=== PATIENT | female | born 1985 ===

== ENCOUNTER 2019-09-16 01:27 | Inpatient (IN) | payer OTHER ==
[~2019-09-16] VITALS: Ht 160 cm; Wt 68.0 kg
[2019-09-16] MEDS ORDERED: ONDANSETRON HCL 4 MG/2 ML VIAL IVP ONE (01:45)
[2019-09-16] MEDS ORDERED: SODIUM CHLORIDE 0.9% 1,000 ML IV ONE (01:45)
[2019-09-16] MEDS ORDERED: QUET200T PO (01:47)
[2019-09-16] MEDS ORDERED: BUPR1FIL3 SL (01:47)
[2019-09-16 02:20] LABS: BASOPHILS % (AUTO) 0.8 % (0.0-2.0); HEMOGLOBIN 13.9 g/dL (12.0-16.0); LYMPHOCYTES # (AUTO) 2.2 K/uL (1.0-4.8); LYMPHOCYTES % (AUTO) 35.6 % (22.0-44.0); MEAN CORPUSCULAR HEMOGLOBIN 28.2 pg (26.0-34.0); MEAN CORPUSCULAR HGB CONC 33.1 G/dL (31.0-37.0); MEAN CORPUSCULAR VOLUME 85 fL (80-100); MONOCYTES # (AUTO) 0.5 K/uL (0.1-1.0); MONOCYTES % (AUTO) 8.3 % (2.0-9.0); NEUTROPHILS # (AUTO) 3.2 K/uL (1.8-7.7); NEUTROPHILS % (AUTO) 52.3 % (40.0-70.0); PLATELET COUNT (AUTO) 232 K/uL (150-450); RED BLOOD CELL COUNT(AUTO) 4.94 MIL/uL (4.00-5.20); RED CELL DISTRIBUTION WIDTH 13.5 % (11.5-14.5)
[2019-09-16 02:28] LABS: ANION GAP 7 mmol/L (8-16); CALCIUM, TOTAL 8.6 mg/dL (8.8-10.5); CARBON DIOXIDE 28 mmol/L (22-29); CHLORIDE 103 mmol/L (98-107); CREATININE 0.72 mg/dL (0.60-1.30); GLOMERULAR FILTR. RATE CALC > 60 mL/min (>60); GLUCOSE,RANDOM 96 mg/dL (70-110); POTASSIUM 4.3 mmol/L (3.5-5.1); SODIUM SERUM 138 mmol/L (136-145); UREA NITROGEN, BLOOD 13 mg/dL (7-18)
[2019-09-16 02:39] LABS: ALANINE AMINOTRANSFERASE 18 U/L (12-78); ALBUMIN 3.4 g/dL (3.4-5.0); ALKALINE PHOSPHATASE 77 U/L (46-116); ASPARTATE AMINOTRANSFERASE 10 U/L (15-37); BILIRUBIN,TOTAL 0.3 mg/dL (0.1-1.0); HCG,QUANTITATIVE < 1 mIU/mL (0-6)
[2019-09-16] MEDS ORDERED: IBUPROFEN 600 MG TABLET PO PRN (03:15)
[2019-09-16] MEDS ORDERED: HydrOXYzine PAMOATE 50 MG CAPSULE PO PRN (03:15)
[2019-09-16] MEDS ORDERED: ONDANSETRON HCL 4 MG/2 ML VIAL IVP PRN (03:15)
[2019-09-16] MEDS ORDERED: CloNIDine HCL 0.1 MG TABLET PO PRN (03:15)
[2019-09-16] MEDS ORDERED: MAG HYDROX/AL HYDROX/SIMETH ES 30 ML SUSPENSION UDCUP PO PRN (03:15)
[2019-09-16] MEDS ORDERED: 0.9% SODIUM CHLORIDE 10 ML SYRINGE IVP PRN (03:15)
[2019-09-16 03:25] VITALS: BP 123/75
[2019-09-16] MEDS: CloNIDine HCL 0.1 MG TABLET PO SCH ×3 (06:00→12:00)
[2019-09-16 07:56] VITALS: BP 113/71
[2019-09-16] MEDS ORDERED: ACETAMINOPHEN 325 MG TABLET PO PRN (08:45)
[2019-09-16] MEDS: ChlordiazePOXIDE HCL 10 MG CAPSULE PO SCH ×3 (10:09→23:17)
[2019-09-16] MEDS: DOCUSATE SODIUM 100 MG CAPSULE PO SCH ×2 (10:11→21:00)
[2019-09-16] MEDS: MULTIVITAMINS WITH MINERALS, THERAPEUTIC TABLET PO SCH (10:12)
[2019-09-16] MEDS: FAMOTIDINE 20 MG TABLET PO SCH (10:12)
[2019-09-16] MEDS: QUEtiapine FUMARATE 200 MG TABLET PO SCH (10:12)
[2019-09-16 12:08] VITALS: BP 107/59
[2019-09-16] MEDS: LORazepam 2 MG/ML VIAL IVP PRN ×2 (12:12→20:00)
[2019-09-16] MEDS ORDERED: HALOPERIDOL LACTATE 5 MG/ML VIAL IVP PRN (14:00)
[2019-09-16] MEDS: HALOPERIDOL LACTATE 5 MG/ML VIAL IM PRN ×2 (14:18→23:16)
[2019-09-16] MEDS ORDERED: DiphenhydrAMINE HCL 50 MG/ML VIAL ONE (14:48)
[2019-09-16] MEDS ORDERED: LORazepam 2 MG/ML VIAL IM ONE (15:00)
[2019-09-16] MEDS ORDERED: DiphenhydrAMINE HCL 50 MG/ML VIAL IM ONE (15:00)
[2019-09-16] MEDS ORDERED: HALOPERIDOL LACTATE 5 MG/ML VIAL IM ONE (15:00)
[2019-09-16 19:54] VITALS: BP 119/69
[2019-09-16 23:16] VITALS: BP 131/70
[2019-09-17] MEDS: LORazepam 2 MG/ML VIAL IVP PRN (01:28)
[2019-09-17 04:52] VITALS: BP 122/54
[2019-09-17] MEDS: HALOPERIDOL LACTATE 5 MG/ML VIAL IM PRN ×3 (05:27→21:30)
[2019-09-17] MEDS ORDERED: LORazepam 2 MG/ML VIAL IM PRN (06:15)
[2019-09-17 07:14] VITALS: BP 117/75
[2019-09-17] MEDS: DOCUSATE SODIUM 100 MG CAPSULE PO SCH ×2 (09:32→21:00)
[2019-09-17] MEDS: ChlordiazePOXIDE HCL 10 MG CAPSULE PO SCH ×2 (09:33→16:00)
[2019-09-17] MEDS: FAMOTIDINE 20 MG TABLET PO SCH (09:33)
[2019-09-17] MEDS: QUEtiapine FUMARATE 200 MG TABLET PO SCH (09:33)
[2019-09-17] MEDS: MULTIVITAMINS WITH MINERALS, THERAPEUTIC TABLET PO SCH (09:33)
[2019-09-17 11:22] VITALS: BP 135/65
[2019-09-17] MEDS ORDERED: HALOPERIDOL LACTATE 5 MG/ML VIAL IVP ONE (14:00)
[2019-09-17] MEDS ORDERED: LORazepam 2 MG/ML VIAL IM ONE (14:00)
[2019-09-17] MEDS ORDERED: DiphenhydrAMINE HCL 50 MG/ML VIAL IM ONE (14:00)
[2019-09-17 15:46] VITALS: BP 113/73
[2019-09-17] MEDS ORDERED: HALOPERIDOL LACTATE 5 MG/ML VIAL IM ONE (16:15)
[2019-09-17 16:43] VITALS: BP 120/63
[2019-09-17 20:25] VITALS: BP 126/70
[2019-09-17] MEDS: LORazepam 2 MG/ML VIAL IM PRN (21:29)
[2019-09-18 06:00] VITALS: BP 127/87
[2019-09-18] MEDS: HALOPERIDOL LACTATE 5 MG/ML VIAL IM PRN (06:45)
[2019-09-18] MEDS: LORazepam 2 MG/ML VIAL IM PRN (06:46)
[2019-09-18 07:46] LABS: ANION GAP 16 mmol/L (8-16); CALCIUM, TOTAL 8.9 mg/dL (8.8-10.5); CARBON DIOXIDE 20 mmol/L (22-29); CHLORIDE 103 mmol/L (98-107); CREATININE 0.84 mg/dL (0.60-1.30); GLOMERULAR FILTR. RATE CALC > 60 mL/min (>60); GLUCOSE,RANDOM 95 mg/dL (70-110); POTASSIUM 3.9 mmol/L (3.5-5.1); SODIUM SERUM 139 mmol/L (136-145); UREA NITROGEN, BLOOD 22 mg/dL (7-18)
[2019-09-18 07:52] LABS: BASOPHILS % (AUTO) 0.8 % (0.0-2.0); EOSINOPHILS % (AUTO) 0.4 % (1.0-6.0); HEMATOCRIT 46.2 % (36-46); HEMOGLOBIN 15.6 g/dL (12.0-16.0); LYMPHOCYTES # (AUTO) 1.9 K/uL (1.0-4.8); LYMPHOCYTES % (AUTO) 14.8 % (22.0-44.0); MEAN CORPUSCULAR HEMOGLOBIN 28.3 pg (26.0-34.0); MEAN CORPUSCULAR HGB CONC 33.9 G/dL (31.0-37.0); MEAN CORPUSCULAR VOLUME 84 fL (80-100); MONOCYTES # (AUTO) 0.9 K/uL (0.1-1.0); MONOCYTES % (AUTO) 6.6 % (2.0-9.0); NEUTROPHILS # (AUTO) 10.2 K/uL (1.8-7.7); NEUTROPHILS % (AUTO) 77.4 % (40.0-70.0); PLATELET COUNT (AUTO) 262 K/uL (150-450); RED BLOOD CELL COUNT(AUTO) 5.53 MIL/uL (4.00-5.20); RED CELL DISTRIBUTION WIDTH 13.7 % (11.5-14.5)
[2019-09-18] MEDS: ChlordiazePOXIDE HCL 10 MG CAPSULE PO SCH ×3 (08:00→08:41)
[2019-09-18] MEDS: MULTIVITAMINS WITH MINERALS, THERAPEUTIC TABLET PO SCH ×3 (08:41→12:01)
[2019-09-18] MEDS: QUEtiapine FUMARATE 200 MG TABLET PO SCH ×2 (08:41→09:00)
[2019-09-18] MEDS: FAMOTIDINE 20 MG TABLET PO SCH ×2 (08:41→09:00)
[2019-09-18] MEDS: DOCUSATE SODIUM 100 MG CAPSULE PO SCH ×3 (08:41→21:11)
[2019-09-18] MEDS ORDERED: MAG HYDROX/AL HYDROX/SIMETH ES 30 ML SUSPENSION UDCUP PO PRN (11:30)
[2019-09-18] MEDS ORDERED: DICYCLOMINE HCL 10 MG CAPSULE PO PRN (11:30)
[2019-09-18] MEDS ORDERED: GuaiFENesin/D-METHORPHAN [SUGAR-FREE] 200-20MG/10 ML SYRUP UDCUP PO PRN (11:30)
[2019-09-18] MEDS ORDERED: CloNIDine HCL 0.1 MG TABLET PO PRN (11:30)
[2019-09-18] MEDS ORDERED: CYANOCOBALAMIN 1,000 MCG/ML VIAL IM ONE (11:30)
[2019-09-18] MEDS ORDERED: LOPERAMIDE HCL 2 MG CAPSULE PO PRN (11:30)
[2019-09-18 11:59] VITALS: BP 131/75
[2019-09-18] MEDS: DIAZEPAM 5 MG TABLET PO PRN ×2 (12:01→16:50)
[2019-09-18] MEDS: FOLIC ACID 1 MG TABLET PO SCH (12:03)
[2019-09-18] MEDS: THIAMINE HCL 100 MG TABLET PO SCH ×2 (12:04→21:11)
[2019-09-18 12:20] VITALS: BP 131/75
[2019-09-18] MEDS: QUEtiapine FUMARATE 100 MG TABLET PO SCH ×2 (14:03→21:11)
[2019-09-18 16:08] VITALS: BP 130/73
[2019-09-18 19:29] VITALS: BP 134/52
[2019-09-19] VITALS (7 sets, daily range): BP systolic 99–122; BP diastolic 59–70
[2019-09-19] MEDS: DIAZEPAM 5 MG TABLET PO PRN (00:33)
[2019-09-19 07:55] LABS: EOSINOPHILS % (AUTO) 3.8 % (1.0-6.0); HEMATOCRIT 47.3 % (36-46); HEMOGLOBIN 15.9 g/dL (12.0-16.0); LYMPHOCYTES # (AUTO) 2.6 K/uL (1.0-4.8); LYMPHOCYTES % (AUTO) 26.6 % (22.0-44.0); MEAN CORPUSCULAR HEMOGLOBIN 28.2 pg (26.0-34.0); MEAN CORPUSCULAR HGB CONC 33.6 G/dL (31.0-37.0); MEAN CORPUSCULAR VOLUME 84 fL (80-100); MONOCYTES # (AUTO) 0.8 K/uL (0.1-1.0); MONOCYTES % (AUTO) 8.3 % (2.0-9.0); NEUTROPHILS % (AUTO) 60.3 % (40.0-70.0); PLATELET COUNT (AUTO) 258 K/uL (150-450); RED BLOOD CELL COUNT(AUTO) 5.63 MIL/uL (4.00-5.20); RED CELL DISTRIBUTION WIDTH 13.6 % (11.5-14.5)
[2019-09-19] MEDS: FAMOTIDINE 20 MG TABLET PO SCH (08:41)
[2019-09-19] MEDS: FOLIC ACID 1 MG TABLET PO SCH (08:41)
[2019-09-19] MEDS: THIAMINE HCL 100 MG TABLET PO SCH ×2 (08:41→21:08)
[2019-09-19] MEDS: DOCUSATE SODIUM 100 MG CAPSULE PO SCH ×2 (08:41→21:08)
[2019-09-19] MEDS: MULTIVITAMINS WITH MINERALS, THERAPEUTIC TABLET PO SCH ×2 (08:41→08:43)
[2019-09-19] MEDS: QUEtiapine FUMARATE 100 MG TABLET PO SCH ×2 (08:41→21:09)
[2019-09-19 17:37] LABS: AMPHET/METH SCREEN,URINE POSITIVE (NEGATIVE); APPEARANCE,URINE CLOUDY (CLEAR); BARBITURATE SCREEN, URINE NEGATIVE (NEGATIVE); BENZODIAZEPINES SCREEN,URINE POSITIVE (NEGATIVE); BILIRUBIN,URINE NEGATIVE (NEGATIVE); CANNABINOID SCREEN,URINE POSITIVE (NEGATIVE); COCAINE SCREEN,URINE NEGATIVE (NEGATIVE); GLUCOSE, URINE (UA) NEGATIVE (NEGATIVE); KETONES,URINE TRACE mg/dL (NEGATIVE); LEUKOCYTE ESTERASE ,URINE SMALL (NEGATIVE); METHADONE SCREEN, URINE NEGATIVE (NEGATIVE); NITRATE,URINE POSITIVE (NEGATIVE); OCCULT BLOOD,URINE TRACE (NEGATIVE); OPIATE SCREEN,URINE POSITIVE (NEGATIVE); PROTEIN,URINE NEGATIVE (NEGATIVE)
[2019-09-19 17:40] LABS: PHENCYCLIDINE SCREEN,URINE NEGATIVE (NEGATIVE)
[2019-09-19 17:43] LABS: BACTERIA,URINE Many /HPF (None Seen); RBC,URINE 0-2 /HPF (0-2); SQUAMOUS EPITHELIAL CELL,UR Many /LPF (None Seen)
[2019-09-20 00:24] VITALS: BP 102/72
[2019-09-20 04:22] VITALS: BP 113/69
[2019-09-20 07:45] VITALS: BP 108/66
[2019-09-20] MEDS: DOCUSATE SODIUM 100 MG CAPSULE PO SCH ×2 (08:01→20:53)
[2019-09-20] MEDS: MULTIVITAMINS WITH MINERALS, THERAPEUTIC TABLET PO SCH ×2 (08:01→09:00)
[2019-09-20] MEDS: THIAMINE HCL 100 MG TABLET PO SCH ×2 (08:01→20:53)
[2019-09-20] MEDS: FOLIC ACID 1 MG TABLET PO SCH (08:01)
[2019-09-20] MEDS: FAMOTIDINE 20 MG TABLET PO SCH (08:01)
[2019-09-20] MEDS: QUEtiapine FUMARATE 100 MG TABLET PO SCH (08:40)
[2019-09-20 15:15] VITALS: BP 102/62
[2019-09-20] MEDS: IBUPROFEN 600 MG TABLET PO PRN (16:11)
[2019-09-20 19:33] VITALS: BP 119/69
[2019-09-20] MEDS: OLANZapine 5 MG TABLET PO SCH (20:53)
[2019-09-20] MEDS ORDERED: OLANZapine 5 MG TABLET PO SCH (21:00)
[2019-09-20 23:59] VITALS: BP 112/69
[2019-09-21 05:09] VITALS: BP 108/59
[2019-09-21 07:40] VITALS: BP 116/69
[2019-09-21 08:02] VITALS: BP 116/69
[2019-09-21] MEDS: DOCUSATE SODIUM 100 MG CAPSULE PO SCH ×2 (08:26→20:05)
[2019-09-21] MEDS: FAMOTIDINE 20 MG TABLET PO SCH (08:26)
[2019-09-21] MEDS: THIAMINE HCL 100 MG TABLET PO SCH ×2 (08:26→20:05)
[2019-09-21] MEDS: MULTIVITAMINS WITH MINERALS, THERAPEUTIC TABLET PO SCH ×2 (08:26)
[2019-09-21] MEDS: FOLIC ACID 1 MG TABLET PO SCH (08:26)
[2019-09-21] MEDS: IBUPROFEN 600 MG TABLET PO PRN (10:46)
[2019-09-21 11:22] VITALS: BP 106/68
[2019-09-21] MEDS: NICOTINE 21 MG/24 HOUR PATCH TD SCH (11:46)
[2019-09-21] MEDS: DIAZEPAM 5 MG TABLET PO PRN (14:50)
[2019-09-21] MEDS: HALOPERIDOL LACTATE 5 MG/ML VIAL IM PRN (14:56)
[2019-09-21 16:24] VITALS: BP 110/59
[2019-09-21 19:42] VITALS: BP 116/66
[2019-09-21] MEDS: OLANZapine 5 MG TABLET PO SCH (20:05)
[2019-09-22 04:14] VITALS: BP 101/61
[2019-09-22 07:38] VITALS: BP 109/70
[2019-09-22] MEDS: NICOTINE 21 MG/24 HOUR PATCH TD SCH (08:08)
[2019-09-22] MEDS: FOLIC ACID 1 MG TABLET PO SCH (08:08)
[2019-09-22] MEDS: DOCUSATE SODIUM 100 MG CAPSULE PO SCH ×2 (08:08→20:10)
[2019-09-22] MEDS: FAMOTIDINE 20 MG TABLET PO SCH (08:08)
[2019-09-22] MEDS: MULTIVITAMINS WITH MINERALS, THERAPEUTIC TABLET PO SCH ×2 (08:08→08:12)
[2019-09-22] MEDS: THIAMINE HCL 100 MG TABLET PO SCH ×2 (08:08→20:10)
[2019-09-22] MEDS: IBUPROFEN 600 MG TABLET PO PRN ×2 (08:29→23:41)
[2019-09-22 11:37] VITALS: BP 113/71
[2019-09-22 15:26] VITALS: BP 113/76
[2019-09-22] MEDS ORDERED: OLAN5TAB2 PO (15:37)
[2019-09-22] MEDS: OLANZapine 5 MG TABLET PO SCH (20:09)
[2019-09-22 20:17] VITALS: BP 122/77
[2019-09-22] MEDS ORDERED: MAGNESIUM HYDROXIDE SUSPENSION 30 ML UDCUP PO PRN (20:45)
[2019-09-22] MEDS ORDERED: BISACODYL 10 MG RECTAL RECTAL SUPPOSITORY PR PRN (20:45)
[2019-09-23 00:15] VITALS: BP 125/69
[2019-09-23 07:55] VITALS: BP 113/66
[2019-09-23] MEDS: FAMOTIDINE 20 MG TABLET PO SCH (08:30)
[2019-09-23] MEDS: DOCUSATE SODIUM 100 MG CAPSULE PO SCH ×2 (08:30→20:12)
[2019-09-23] MEDS: THIAMINE HCL 100 MG TABLET PO SCH ×2 (08:30→20:12)
[2019-09-23] MEDS: FOLIC ACID 1 MG TABLET PO SCH (08:30)
[2019-09-23] MEDS: MULTIVITAMINS WITH MINERALS, THERAPEUTIC TABLET PO SCH ×2 (08:30→08:34)
[2019-09-23] MEDS: NICOTINE 21 MG/24 HOUR PATCH TD SCH (08:31)
[2019-09-23 11:36] VITALS: BP 110/68
[2019-09-23 15:50] VITALS: BP 125/74
[2019-09-23] MEDS: OLANZapine 5 MG TABLET PO SCH (20:12)
[2019-09-24 00:14] VITALS: BP 113/69
[2019-09-24 05:21] VITALS: BP 107/64
[2019-09-24] MEDS: DOCUSATE SODIUM 100 MG CAPSULE PO SCH (07:47)
[2019-09-24] MEDS: NICOTINE 21 MG/24 HOUR PATCH TD SCH (07:48)
[2019-09-24] MEDS: MULTIVITAMINS WITH MINERALS, THERAPEUTIC TABLET PO SCH ×2 (07:48→07:49)
[2019-09-24] MEDS: FOLIC ACID 1 MG TABLET PO SCH (07:48)
[2019-09-24] MEDS: FAMOTIDINE 20 MG TABLET PO SCH (07:48)
[2019-09-24] MEDS: THIAMINE HCL 100 MG TABLET PO SCH (07:48)
[2019-09-24 07:53] VITALS: BP 113/71
== END 2019-09-24 10:30 | disposition home or self-care (01) | DRG 897 ==
LOC: EMS 01:29 → 6S 02:00
PROVIDERS: ADMIT Internal Medicine; ATTEND Internal Medicine
DX: F11.23 Opioid dependence with withdrawal (principal); F20.9 Schizophrenia, unspecified; F17.210 Nicotine dependence, cigarettes, uncomplicated; W06.XXXA Fall from bed, initial encounter; Y93.89 Activity, other specified; Y92.89 Other specified places as the place of occurrence of the external cause; Y99.8 Other external cause status; Z88.5 Allergy status to narcotic agent
CPT/HCPCS: 86803; 87086; 87340; 96374; G0480; J1200; J1630; J2060; J2405; J3420; J7030